=== PATIENT | female | born 1935 | race Caucasian/White ===

== ENCOUNTER 2019-05-17 16:46 | Inpatient (IN) | payer OTHER, MEDICARE ==
[~2019-05-17] VITALS: Ht 160 cm; Wt 64.8 kg
[2019-05-17 16:48] VITALS: BP 145/85
--- NOTE | 2019-05-17 17:00 | NUR ---
QUOC FAUSTIN admitted to room Z4TH-1, with an admitting diagnosis of RIGHT TOTAL KNEE REPLACEMENT, on 05/17/19 from [facility] via EMS, accompanied by [facility].QUOC FAUSTIN introduced to surroundings, call light, bed controls, phone, TV, temperature control, lights, meal times, smoking policy, visitor policy, side rail policy, bathrooms and showers. Patient Rights given to patient in the handbook. QUOC FAUSTIN verbalizes understanding that [facility] is not responsible for the loss or damage to any personal effects or valuables that are kept in the patients posession during their hospitalization. QUOC FAUSTIN verbalizes understanding of Interdisciplinary Patient Education. Patient and/or family were informed about the Rapid Response Team and its purpose.
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
[2019-05-17] MEDS: NS IV 1000 ML 1,000 ML IV SCH (17:59)
[2019-05-17] MEDS ORDERED: ONDANSETRON 4 MG/2 ML (SDV) Z0FRAN IVP PRN (18:00)
[2019-05-17] MEDS ORDERED: diphenhydrAMINE 25 MG TAB (BENADRYL) PO PRN (18:00)
[2019-05-17] MEDS ORDERED: ONDANSETRON 4 MG (ZOFRAN) ORAL DISSOLVE TAB PO PRN (18:00)
[2019-05-17] MEDS ORDERED: risperiDONE 0.25 MG (RisperDAL) TAB PO PRN (18:00)
[2019-05-17] MEDS ORDERED: guaiFENesin/CODEINE (ROBITUSSIN AC) 10ML UDC PO PRN (18:00)
[2019-05-17] MEDS ORDERED: morphine INJ 4 MG/ML 1 ML (VIAL/SYRINGE) IV PRN (18:00)
[2019-05-17] MEDS ORDERED: MELATONIN 3 MG TABLET PO PRN (18:00)
[2019-05-17] MEDS ORDERED: DOCUSATE SODIUM 100 MG (COLACE) CAP PO PRN (18:00)
[2019-05-17] MEDS ORDERED: LOPERAMIDE 2 MG (IMODIUM) TABLET PO PRN (18:00)
[2019-05-17] MEDS ORDERED: ALPRAZolam 0.25 MG (XANAX) TAB PO PRN (18:00)
[2019-05-17] MEDS ORDERED: ACETAMINOPHEN 500 MG TAB (TYLENOL) PO PRN (18:00)
[2019-05-17] MEDS ORDERED: morphine INJ 10 MG/ML 1ML (SYR OR VIAL) IVP PRN (18:00)
[2019-05-17] MEDS ORDERED: HALOPERIDOL 5 MG/ML (HALDOL) AMP IM PRN (18:00)
[2019-05-17 19:47] VITALS: BP 108/67
[2019-05-17] MEDS ORDERED: ceFAZolin 2 GM/50 ML NS 50 ML IV NR (20:00)
[2019-05-17] MEDS: SENNA W/DOCUSATE (SENOKOT S) TABLET PO SCH (21:10)
[2019-05-18] VITALS: BP 123/70
[2019-05-18 04:00] VITALS: BP 140/71
[2019-05-18 06:27] LABS: BASOPHILS % (AUTO) 0 % (0-10); EOSINOPHILS # (AUTO) 0.1 10^3/uL (0.0-0.3); EOSINOPHILS % (AUTO) 1 % (0-10); HEMATOCRIT 30 % (35-52); HEMOGLOBIN 10.4 G/DL (11.5-16.0); LYMPHOCYTES # (AUTO) 0.6 X 10^3 (1.0-4.0); LYMPHOCYTES % (AUTO) 8 % (12-44); MEAN CORPUSCULAR HEMOGLOBIN 31 PG (25-34); MEAN CORPUSCULAR HGB CONC 34 G/DL (32-36); MEAN CORPUSCULAR VOLUME 89 FL (80-99); MEAN PLATELET VOLUME 9.6 FL (7.4-10.4); MONOCYTES # (AUTO) 0.5 X 10^3 (0.0-1.0); MONOCYTES % (AUTO) 6 % (0-12); NEUTROPHILS # (AUTO) 6.8 X 10^3 (1.8-7.8); NEUTROPHILS % (AUTO) 85 % (42-75); PLATELET COUNT 132 10^3/uL (130-400); RED CELL DISTRIBUTION WIDTH 13.9 % (10.0-14.5)
[2019-05-18 06:52] LABS: BILIRUBIN,TOTAL 0.9 MG/DL (0.1-1.0); CALCIUM 8.7 MG/DL (8.5-10.1); CREATININE SERUM 0.9 MG/DL (0.60-1.30); POTASSIUM 2.9 MMOL/L (3.6-5.0); TOTAL PROTEIN 5.3 GM/DL (6.4-8.2)
[2019-05-18 06:56] LABS: BAND NEUTROPHILS 2 %; EOSINOPHILS % (MANUAL) 2 %; LYMPHOCYTES % (MANUAL) 7 %; MICROCYTOSIS SLIGHT; MONOCYTES % (MANUAL) 7 %; NEUTROPHILS % (MANUAL) 82 %
[2019-05-18 08:00] VITALS: BP 166/83
[2019-05-18] MEDS: SENNA W/DOCUSATE (SENOKOT S) TABLET PO SCH (08:43)
[2019-05-18] MEDS: NS IV 1000 ML 1,000 ML IV SCH (08:43)
[2019-05-18] MEDS ORDERED: ENOXAPARIN 40 MG/0.4 ML (LOVENOX) SYR SQ SCH (09:00)
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
[2019-05-18 12:00] VITALS: BP 150/84
--- NOTE | 2019-05-18 15:23 | Physical Therapy Evaluation ---
PT Evaluation-General Medical Diagnosis Admission Date May 17, 2019 at 16:46 Medical Diagnosis: right TKA Onset Date: May 17, 2019 Therapy Diagnosis Therapy Diagnosis: impaired mobility, strength, endurance, ROM Precautions Precautions/Isolations: Fall Prevention, Standard Precautions Weight Bear Status Right Lower Extremity: Right Full Weight Bearing Left Lower Extremity: Left Full Weight Bearing Referral Physician: Bright Reason for Referral: Evaluation/Treatment Medical History Additional Medical History Past Medical History Surgeries: Appendectomy, Gallbladder, Orthopedic Cardiac: High Cholesterol, Hypertension Neurological: Dementia Musculoskeletal: Arthritis HEENT: Glaucoma Psychosocial: Anxiety Reviewed History: Yes Social History Home: Single Level Current Living Status: Spouse Prior Prior Level of Function SCALE: Activities may be completed with or without assistive devices. 3-Uqxkhrsvel-iwluobq completes the activity by him/herself with no assistance from a helper. 5-Set-up or Clean-up Assistance-helper sets up or cleans up; patient completes activity. Holliday assists only prior to or following the activity. 4-Supervision or Touching Assistance-helper provides verbal cues and/or touching/steadying and/or contact guard assistance as patient completes activity. Assistance may be provided throughout the activity or intermittently. 3-Partial/Moderate Assistance-helper does LESS THAN HALF the effort. Holliday lifts, holds or supports trunk or limbs, but provides less than half the effort. 2-Substantial/Maximal Assistance-helper does MORE THAN HALF the effort. Holliday lifts or holds trunk or limbs and provides more than half the effort. 6-Yvyogzste-mnmnro does ALL the effort. Patient does none of the effort to complete the activity. Or, the assistance of 2 or more helpers is required for the patient to complete the activity. If activity was not attempted, code reason: 7-Patient Refused. 9-Not Applicable-not attempted and the patient did not perform the activity before the current illness, exacerbation or injury. 10-Not Attempted due to Environmental Limitations-(lack of equipment, weather restraints, etc.). 88-Not Attempted due to Medical Conditions or Safety Concerns. Bed Mobility: 6 Transfers (B,C,W/C): 6 Gait: 6 Indoor Mobility (Ambulation): Independent Daughter states that she has a walker but doesn't use it much and when she does she doesn't use it right. PT Evaluation-Current Subjective Patient in bed pre tx, agrees to PT, has 8-9/10 pain in right knee, nurse gives pain meds at end of tx. Patient is pleasantly confused. It seems that patient will be transferred back to [place]. Pt/Family Goals "to walker better" Objective Patient Orientation: Person, Confused ROM/Strength ROM Lower Extremities right knee flexion 60 degrees, extension +15 degrees Strength Lower Extremities NT Sensory Vision: Wears Glasses Hearing: Functional Sensation Right Lower Extremit: Intact Sensation Left Lower Extremity: Intact Transfers Roll Left to Right (QC): 6 Sit to Lying (QC): 3 Lying to Sitting/Side of Bed(Q: 3 Sit to Stand (QC): 2 Chair/Lhl-nn-Eiifg Xfer(QC): 2 Patient strongly retropulsive upon standing and retropulsion continues for most of ambulation, patient denies dizziness or light headedness. Gait Does the Patient Walk?: Yes Mode of Locomotion: Walk Anticipated Mode of Locomotion: Walk Walk 10 feet (QC): 2 Distance: 20' Gait Assistive Device: FWW Comments/Gait Description Patient needs max assist for retropulsion and balance, patient bears minimal weight on right leg, flexed right knee, step to gait with right side leading Balance Sitting Static: Fair Sitting Dynamic: Fair Standing Static: Poor Standing Dynamic: Poor Treatment Supine TKA protocol x10 (AP, QS, HS, SAQ, SLR) Assessment/Needs Patient has impaired mobility, strength, endurance, ROM. Patient is confused and retropulsive with standing and ambulation. Patient in bed post tx with nu rse call, phone, tray, family and nurse in room. Rehab Potential: Fair PT Dietary Service Aide Goals Mcfp Goals PT Dietary Service Aide Goals Time Frame: May 25, 2019 Roll Left & Right (QC): 6 Sit to Lying (QC): 4 Lying-Sitting on Side/Bed(QC): 4 Sit to Stand (QC): 3 Chair/Oof-tm-Mtvgp Xfer(QC): 3 Walk 10 feet (QC): 3 Walk 50ft with 2 Turns (QC): 3 PT Plan Problem List Problem List: Activity Tolerance, Functional Strength, Safety, Balance, Gait, Transfer, Bed Mobility, ROM Treatment/Plan Treatment Plan: Continue Plan of Care Treatment Plan: Bed Mobility, Education, Functional Activity Ray, Functional Strength, Gait, Safety, Therapeutic Exercise, Transfers Treatment Duration: May 25, 2019 Frequency: 11 times per week Estimated Hrs Per Day: .25 hour per day Patient and/or Family Agrees t: Yes Safety Risks/Education Patient Education: Gait Training, Transfer Techniques, Correct Positioning, Safety Issues Teaching Recipient: Patient Teaching Methods: Demonstration, Discussion Response to Teaching: Reinforcement Needed Discharge Recommendations Plan Patient will perform bed mobility and transfer training, balance and endurance training, functional strengthening, stair training, gait training, and education, to improve functional mobility and independence at home. Therapy Discharge Recommendati: Intermittent Supervision, Home & Family Time/GCodes Time In: 1502 Time Out: 1512 Total Billed Treatment Time: 10 Total Billed Treatment 1 visit ZULMA Correa' CELIA EDMOND PT May 18, 2019 15:23
[2019-05-18] MEDS ORDERED: KCL 20 MEQ TAB (K-DUR) PO NR (15:45)
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
--- NOTE | 2019-05-18 16:04 | Occupational Therapy Eval ---
OT Evaluation-General/PLF Medical Diagnosis Admission Date May 17, 2019 at 16:46 Medical Diagnosis: right TKA Onset Date: May 17, 2019 Therapy Diagnosis Therapy Diagnosis: impaired ADLs/functional mobility Precautions Precautions/Isolations: Fall Prevention, Standard Precautions Safety Interventions: Bed Exit Alarm Referral Physician: Bright Carrero Reason: Evaluation/Treatment Medical History Pertinent Medical History: Arthritis, Dementia Current History Per H&P: "Surgeries: Appendectomy, Gallbladder, Orthopedic Cardiac: High Cholesterol, Hypertension Neurological: Dementia Musculoskeletal: Arthritis HEENT: Glaucoma Psychosocial: Anxiety" Reviewed History: Yes Social History Home: Single Level Current Living Status: Spouse ADL-Prior Level of Function SCALE: Activities may be completed with or without assistive devices. 6-Dothmtnsjm-hqknfiq completes the activity by him/herself with no assistance from a helper. 5-Set-up or Clean-up Assistance-helper sets up or cleans up; patient completes activity. [place] assists only prior to or following the activity. 4-Supervision or Touching Assistance-helper provides verbal cues and/or touching/steadying and/or contact guard assistance as patient completes activity. Assistance may be provided throughout the activity or intermittently. 3-Partial/Moderate Assistance-helper does LESS THAN HALF the effort. Orient lift s, holds or supports trunk or limbs, but provides less than half the effort. 2-Substantial/Maximal Assistance-helper does MORE THAN HALF the effort. Orient lifts or holds trunk or limbs and provides more than half the effort. 3-Nxidjypfn-jplcte does ALL the effort. Patient does none of the effort to complete the activity. Or, the assistance of 2 or more helpers is required for the patient to complete the activity. If activity was not attempted, code reason: 7-Patient Refused. 9-Not Applicable-not attempted and the patient did not perform the activity before the current illness, exacerbation or injury. 10-Not Attempted due to Environmental Limitations-(lack of equipment, weather restraints, etc.). 88-Not Attempted due to Medical Conditions or Safety Concerns. ADL PLOF Comments Pt's daughter states pt lives with her . She has a walker but does not use it much and when she uses it, it is not used correctly. Pt's PLOF with ADLs is unknown at this time, pt unable to tell OT how much assistance she required at home. Self Care: Unknown Functional Cognition: Unknown OT Current Status Subjective Pt laying in bed with family present. Pt's family states they are waiting on pt to transfer back to [place]. Pt reports pain 8-9/10 in right knee Mental Status/Objective Patient Orientation: Person, Confused Attachments: Morris Catheter, IV, Polar Pack Current Glasses/Contacts: Yes Upper Extremity ROM WFL, BUE shoulder flexion to approx 160 degrees Upper Extremity Coordination WLF Upper Extremity Sensation pt did not report any tingling/numbness BUEs Upper Extremity Strength grossly 3+/5 MMT ADL-Treatment Oral Hygiene (QC): 5 (Pt able to take drink of water with set up ) Other Treatments Pt laying in bed with family present. OT educated pt/family on purpose and benefits of OT, they verbalized understanding. PLOF and home set up is unknown at this time. Her daughter reports that pt currently lives with her but does not give further details on PLOF. Pt transferred supine to sit EOB with min A, retropulsive upon sitting EOB. She did not report any dizziness with sitting EOB. Pt then transferred back to supine, requiring assistance with getting her right leg into bed. When instructed to move her shoulders to the center, pt was unable to understand instruction, instead rolling to her side. Pt required physical assistance to align shoulders in the midline of the bed. Post OT session, pt laying in bed, call light in reach and all needs met, family pr esent. Education OT Patient Education: Correct positioning, Energy conservation, Modified ADL techniques, Progress toward Goal/Update tx plan, Purpose of tx/functional activities, Transfer techniques Teaching Recipient: Patient, Family Teaching Methods: Discussion Response to Teaching: Verbalize Understanding, Reinforcement Needed OT Usp Goals Usp Goals Time Frame: May 26, 2019 Eating (QC): 6 Oral Hygiene (QC): 6 Toileting Hygiene (QC): 6 Shower/Bathe Self (QC): 4 Upper Body Dressing (QC): 6 Lower Body Dressing (QC): 4 On/Off Footwear (QC): 4 1=Demonstrate adherence to instructed precautions during ADL tasks. 2=Patient will verbalize/demonstrate understanding of assistive devices/modifications for ADL. 3=Patient will improve strength/tolerance for activity to enable patient to perform ADL's. OT Education/Plan Problem List/Assessment Assessment: Decreased Activ Tolerance, Decreased UE Strength, Impaired Bed Mo bility, Impaired Cognition, Impaired Funct Balance, Impaired I ADL's, Impaired Self-Care Skills Discharge Recommendations Plan/Recommendations: Continue POC Therapy Discharge Recommendati: Intermittent Supervision, Home & Family Treatment Plan/Plan of Care Treatment,Training & Education: Yes Patient would benefit from OT for education, treatment and training to promote independence in ADL's, mobility, safety and/or upper extremity function for ADL's. Plan of Care: ADL Retraining, Functional Mobility, UE Funct Exercise/Act Treatment Duration: May 26, 2019 Frequency: 5 times per week Estimated Hrs Per Day: .25 hour per day Agreement: Yes Rehab Potential: Fair Time/GCodes Start Time: 14:52 Stop Time: 15:02 Total Time Billed (hr/min): 10 Billed Treatment Time 1, ONEIDA CASH OT May 18, 2019 15:45
== END 2019-05-18 15:58 | disposition short-term general hospital (02) | DRG 561 ==
LOC: 4TH 16:46
PROVIDERS: ADMIT Internal Medicine; ATTEND Internal Medicine
DX: Z47.1 Aftercare following joint replacement surgery (principal); Z96.651 Presence of right artificial knee joint; F03.90 Unspecified dementia, unspecified severity, without behavioral disturbance, psychotic disturbance, mood disturbance, and anxiety; R41.0 Disorientation, unspecified; F41.9 Anxiety disorder, unspecified; I10 Essential (primary) hypertension; E78.00 Pure hypercholesterolemia, unspecified; E78.5 Hyperlipidemia, unspecified; M19.91 Primary osteoarthritis, unspecified site; H40.9 Unspecified glaucoma
CPT/HCPCS: 36415; 80053; 83540; 83735; 85007; 85027; 94664; 94760